=== PATIENT | female | born 1940 | race Caucasian/White ===

== ENCOUNTER 2024-11-27 14:27 | Inpatient (IN) | payer OTHER, SELFPAY ==
[2024-11-27 12:38] VITALS: BP 142/70; BMI 28.3
[2024-11-27 12:59] LABS: Urine Albumin 2+ (Neg - Trace); Urine Bilirubin Negative (Negative); Urine Character Slightly Cloudy (Clear); Urine Color Yellow; Urine Glucose Negative (Negative); Urine Ketone Negative (Negative); Urine Leukocyte 3+ (Negative); Urine Nitrite Positive (Negative); Urine Occult Blood 2+ (Negative); Urine Specific Gravity 1.015 (<1.030); Urine Urobilinogen Negative (Neg - 1+)
[2024-11-27 13:00] VITALS: BP 126/61
[2024-11-27 13:00] LABS: % Basophils 0.4 % (0-2); % Immature Granulocytes 0.5 % (0-0.5); % Lymphocytes 8.2 % (20.5-51.1); % Neutrophils 82.9 % (42.2-75.2); Absolute Immature Granulocytes 0.1 10^3/uL (0-0.05); Absolute Lymphocytes 0.8 10^3/uL (1.2-3.4); Absolute Monocytes 0.8 10^3/uL (0.1-0.6); Absolute Neutrophils 7.8 10^3/uL (1.4-6.5); Hematocrit 39.9 % (37.0-47.0); Hemoglobin 13.5 g/dL (12.0-16.0); Mean Corp Hgb Conc. 33.8 g/dL (33.0-37.0); Mean Corpuscular Hgb 30.2 pg (27.0-31.0); Mean Corpuscular Volume 89.3 fL (81.0-99.0); Nucleated Red Blood Cells % 0 %; Platelet Count 155 10^3/uL (130-400); Red Blood Cell Count 4.47 10^6/uL (4.20-5.40); Red Cell Dist. Width 12.4 % (11.5-14.5); White Blood Cell Count 9.4 10^3/uL (4.8-10.8)
[2024-11-27 13:08] LABS: ALT (SGPT) 14 U/L (0-35); AST (SGOT) 18 U/L (14-36); Albumin 4.6 g/dl (3.5-5.0); Alkaline Phosphatase 63 U/L (38-126); Blood Urea Nitrogen 15 mg/dl (7-17); Calcium 9.6 mg/dl (8.4-10.2); Carbon Dioxide 29 mmol/L (22-30); Chloride 95 mmol/L (98-107); Estimated Creatinine Clearance 46 ml/min; Glucose 117 mg/dl (70-99); Potassium 4.5 mmol/L (3.5-5.1); Sodium 135 mmol/L (135-145); Total Bilirubin 0.7 mg/dl (0.2-1.3); Total Protein 7.2 g/dl (6.3-8.2); eGFR > 60.00
[2024-11-27 13:21] LABS: Urine Urothelial Cell 0-2 /LPF (FEW)
[2024-11-27 13:22] LABS: Urine Bacteria Many (Negative); Urine White Cell 30-40 /HPF (0-5)
--- NOTE | 2024-11-27 13:50 | ED.GENMED ---
History of Present Illness
General
Chief Complaint: Change in Mental Status
Time Seen by Provider: 11/27/24 12:40
History of Present Illness
History of Present Illness:
84-year-old female with history of underlying dementia and hypertension presenting with change in mental status. Patient arrives from home with daughter who notes that yesterday patient did not have a good night of sleep. Per her daughter, was
called by her father and deicer tester today that she was more out of it. When patient arrived, patient seemed very sleepy, out of it, not like herself. Patient does have 24-hour nursing care. No report of any recent fever or new cough. No report of
any fall or trauma. Daughter does note something similar happened a few years ago, was found to have a urine infection. Patient herself is a very limited historian, not able to answer any direct questions. No additional history obtained at this
time
Phy Exam
Physical Exam
Physical Exam:
General: Well-appearing, no clinical signs of dehydration, nontoxic and in no acute distress
HEENT: protecting airway
Neck: appears supple
CV: Normal heart rate, regular rhythm
Resp: No accessory muscle use, no increased work of breathing, lungs clear to auscultation bilaterally
Abd: Soft and non-distended, no tenderness to palpation
Extremities: No deformities, no swelling, no erythema
Neuro: alert, disoriented to place and time
: deferred
Rectal: deferred
Psych: Normal affect
Skin: Intact
Course
Orders/Labs/Results
Orders:
Orders
11/27/24 12:43
EKG [Electrocardiogram (*1)] Urgent
Reason for Study: Other
Other Reason for Exam: change in mental status
EKG- Treatment ONCE
11/27/24 12:44
Complete Blood Count/With Diff Urgent
Comprehensive Metabolic Panel Urgent
Urinalysis Reflex To Culture Urgent
Date Specimen was Collected: 11/27/24
Time Specimen was Collected: 12:43
Urine Microscopic Reflex Cult Urgent
Urine Culture Urgent
LUI Source: U
Specimen Description:
Date Specimen was Collected: 11/27/24
Time Specimen was Collected: 12:43
11/27/24 13:29
0.9% Sodium Chloride 1000 ml [Nss] 1,000 ml IV BOLUS
Abnormal Lab Results
11/27/24
12:44
Abs Immat Gran (auto) 0.1 H 10^3/uL
(0-0.05)
Absolute Neuts (auto) 7.8 H 10^3/uL
(1.4-6.5)
Absolute Lymphs (auto) 0.8 L 10^3/uL
(1.2-3.4)
Absolute Monos (auto) 0.8 H 10^3/uL
(0.1-0.6)
Neutrophils % 82.9 H %
(42.2-75.2)
Lymphocytes % 8.2 L %
(20.5-51.1)
Chloride 95 L mmol/L
(98-107)
Glucose 117 H mg/dl
(70-99)
Ur Occult Blood Reflex 2+ A
(Negative)
Urine Nitrite (Reflex) Positive A
(Negative)
Leukocyte Esterase Rfl 3+ A
(Negative)
Urine RBC 11-15 A /HPF
(0-2)
Urine WBC (Reflex) 30-40 A /HPF
(0-5)
Urine Bacteria (Reflex) Many A
(Negative)
Urine Albumin (Reflex) 2+ A
(Neg - Trace)
11/27/24 12:44
11/27/24 12:44
Vital Signs
Initial and Last Documented VS:
Initial Vital Signs
Temp Pulse Resp BP Pulse Ox
98.4 F 93 16 142/70 95
11/27/24 12:38 04/22/25 12:38 11/27/24 12:38 11/27/24 12:38 11/27/24 12:38
Last Documented Vital Signs
Temp Pulse Resp BP Pulse Ox
98.4 F 85 19 126/61 95
11/27/24 12:38 11/27/24 13:00 11/27/24 13:00 11/27/24 13:00 11/27/24 12:43
MDM/Problems Addressed
MDM/Problems Addressed:
84-year-old female with history of hypertension and dementia presenting to the emergency department for change in mental status.
On arrival patient is awake and alert, however not oriented which appears to be her baseline. Daughter is at bedside, notes that she is more sleepy and just is not acting herself. She however is hemodynamically stable, nontoxic. Moving all
extremities equally with lower suspicion for central neurologic process. Patient has had urinary tract infections with similar presentation in the past, working diagnosis at this time. Will plan for laboratory analysis, EKG, urinalysis.
13:50 - Labs are unremarkable. EKG without acute ischemic abnormality. Urine is positive for infection, consistent with likely etiology to patient's change in mental status. Given reported somnolence and increased sleepiness, will plan for
admission for IV antibiotics and continued monitoring.
*EKG
Interpreted by ED Provider?: Yes
EKG Intrepretation Date: 11/27/24
EKG Intrepretation Time: 13:54
Interpretation: normal
Comparison EKG: no comparison EKG present
Heart Rate: 86
Rate: normal
Rhythm: sinus
[employer]: normal axis
Interval: normal interval
QRS Pattern: normal QRS
Ischemia: no ischemia
*Critical Care Note
Total Time (30-74mins, 75-104mins- exclusive of procedures): Not Applicable
ED Attending Note
-
Portions of this chart may have been created with voice recognition software.� Occasional wrong word or��sound alike� substitutions may have occurred due to the inherent limitations of voice recognition software.
Discharge Plan
Interventions
Interventions:
*Risk Screen - Suicide Last Done: 11/27/24 12:38
*General Assessment Last Done: 11/27/24 12:38
*Neglect/Abuse Screening Last Done: 11/27/24 12:38
*ED- Fall Risk Assessment Last Done: 11/27/24 12:38
*ED COVID-19 Vaccine History Last Done: 11/27/24 12:38
ED- Pulmonary Assessment Last Done: 11/27/24 13:04
ED- Neurological Assessment Last Done: 11/27/24 13:04
ED- Cardiac Assessment Last Done: 11/27/24 13:04
Discharge Date and Time
Print Language: BELARUSIAN
[2024-11-27] MEDS: MAXIPIME 2000 MG IV (14:02)
[2024-11-27] MEDS: NSS 1000 IV (14:06)
--- NOTE | 2024-11-27 14:09 | HPS.HSE ---
Family Physician
-
Family Physician:
Chief Complaint
-
confusion
History of Present Illness
84-year-old female past medical history of dementia, hypertension presenting with change in mental status. She has been lethargic and a little bit confused and weak. She arrives from home with daughter who notes that yesterday patient was not
having a good night of sleep. As per daughter similar thing happened a few years ago and she was found to have UTI. Patient is not a good historian. Unable to say if she was having urinary symptoms. She did have some sweats this morning. No
vomiting or diarrhea.
She does not smoke or drink alcohol.
Medical History
Past Medical History
Past Medical History: Reports Other (dementia, hypertension)
Past Surgical History: Reports None
Social History
Tobacco: Non-smoker
Alcohol: None
Drug: None
Family History
Family History: Not pertinent
Allergies / Home Medications
Allergies reflects when Allergies were last updated in [employer].
Home Medications with original date entered in [employer]
Allergy/Medication List:
Allergies
Allergy/AdvReac Type Severity Reaction Status Date / Time
Penicillins Allergy Swelling Verified 11/27/24 12:42
Home Medications
acetaminophen 650 mg tablet,extended release (Tylenol Arthritis Pain) 1,300 mg PO HS 11/27/24
donepezil 23 mg tablet 23 mg PO QPM 11/27/24
escitalopram oxalate 5 mg tablet (Lexapro) 15 mg PO QPM 11/27/24
losartan 100 mg-hydrochlorothiazide 12.5 mg tablet 1 tab PO QPM 11/27/24
melatonin 10 mg tablet 10 mg PO HS 11/27/24
memantine 28 mg capsule sprinkle,extended release 24hr 28 mg PO QPM 11/27/24
Review of Systems
-
History Source: Patient
A 12 point ROS was completed and negative except as noted: Yes
Constitutional: Reports No Symptoms
EENT: Reports No Symptoms
Respiratory: Reports No Symptoms
Cardiac: Reports No Symptoms
Abdomen/GI: Reports No Symptoms
: Reports No Symptoms
Musculoskeletal: Reports No Symptoms
Skin: Reports No Symptoms
Neurological: Reports No Symptoms
Endocrine: Reports No Symptoms
Hematologic/Lymphatic: Reports No Symptoms
Psych: Reports No Symptoms
Physical Exam
Vital Signs
Vital Signs
Temp Pulse Resp BP Pulse Ox
98.4 F 85 19 126/61 95
11/27/24 12:38 11/27/24 13:00 11/27/24 13:00 11/27/24 13:00 11/27/24 12:43
Physical Exam
General: Well Developed, Well Nourished and No Apparent Distress
HEENT: NormoCephalic, Moist mucous membranes and Atraumatic
Respiratory: Clear
Cardiac: S1/S2 and Regular Rhythm; No Murmur or Rub
GI: Soft, Non Tender, Non Distended and Normal Bowel Sounds; No Organomegaly
Rectal: Deferred by Provider
Musculoskeletal: No Clubbing, No Cyanosis and No Edema
Skin: No Rash
Neuro: Nonfocal/grossly intact
Laboratory Results
-
11/27/24 12:44
11/27/24 12:44
Laboratory Results
Total Bilirubin 0.7 mg/dl (0.2-1.3) 11/27/24 12:44
AST 18 U/L (14-36) 11/27/24 12:44
ALT 14 U/L (0-35) 11/27/24 12:44
Alkaline Phosphatase 63 U/L (38-126) 11/27/24 12:44
Data Reviewed
-
Lab Data: Labs Reviewed by me
Old Records: Reviewed
Impression/Plan
-
IMPRESSION:
PLAN:
# Acute metabolic encephalopathy secondary to UTI
-IV fluids were given
- Urinalysis shows 30-40 WBC, +3 leukocyte esterase, positive nitrates,
- Urine culture
- Ceftriaxone
Dementia
- Continue donepezil, memantine, Lexapro
Essential hypertension
- Continue losartan, hydrochlorothiazide
DNR/DNI
DVT prophylaxis�heparin
Regular diet
[2024-11-27 15:43] VITALS: BP 127/60
--- NOTE | 2024-11-27 16:47 | PTCARENOTE ---
Pt arrived from ED at 1600, was a pullover from stretcher to bed. Pt AAOx2 with daughter at bedside. Nursing assessment complete and pt resting comfortably at bedside. Will continue with plan of care.
[2024-11-27] MEDS: LEXAPRO 15 MG PO (17:19)
[2024-11-27] MEDS: ARICEPT 10 MG PO (17:19)
[2024-11-27] MEDS: NAMENDA 10 MG PO (20:35)
[2024-11-27] MEDS: ROCEPHIN 1000 MG IV (20:35)
[2024-11-27] MEDS: STERILE WATER FOR INJECTION 10 ML IV (20:36)
[2024-11-27] MEDS: HEPARIN 5000 UNITS SC (20:37)
[2024-11-27] MEDS: MELATONIN 10 MG PO (20:42)
[2024-11-27 23:30] VITALS: BP 134/70
[2024-11-28 06:48] LABS: % Basophils 0.5 % (0-2); % Eosinophils 0.1 % (0-6); % Immature Granulocytes 0.5 % (0-0.5); % Lymphocytes 17.5 % (20.5-51.1); % Monocytes 8.8 % (1.7-9.3); % Neutrophils 72.6 % (42.2-75.2); Absolute Lymphocytes 1.5 10^3/uL (1.2-3.4); Absolute Monocytes 0.8 10^3/uL (0.1-0.6); Absolute Neutrophils 6.3 10^3/uL (1.4-6.5); Hemoglobin 13.5 g/dL (12.0-16.0); Mean Corp Hgb Conc. 34.6 g/dL (33.0-37.0); Mean Corpuscular Hgb 30.8 pg (27.0-31.0); Mean Platelet Volume 8.9 fL (7.4-10.4); Nucleated Red Blood Cells % 0 %; Platelet Count 159 10^3/uL (130-400); Red Blood Cell Count 4.38 10^6/uL (4.20-5.40); Red Cell Dist. Width 12.4 % (11.5-14.5); White Blood Cell Count 8.6 10^3/uL (4.8-10.8)
[2024-11-28 07:18] VITALS: BP 113/60
[2024-11-28] MEDS: HEPARIN 5000 UNITS SC ×2 (08:12→20:26)
[2024-11-28 08:28] LABS: ALT (SGPT) 15 U/L (0-35); AST (SGOT) 23 U/L (14-36); Albumin 4.2 g/dl (3.5-5.0); Alkaline Phosphatase 57 U/L (38-126); Blood Urea Nitrogen 15 mg/dl (7-17); Calcium 9.3 mg/dl (8.4-10.2); Carbon Dioxide 26 mmol/L (22-30); Chloride 98 mmol/L (98-107); Estimated Creatinine Clearance 59 ml/min; Glucose 121 mg/dl (70-99); Potassium 4.1 mmol/L (3.5-5.1); Sodium 136 mmol/L (135-145); Total Bilirubin 0.6 mg/dl (0.2-1.3); Total Protein 6.9 g/dl (6.3-8.2); eGFR > 60.00
[2024-11-28] MEDS: NAMENDA PO (09:13)
--- NOTE | 2024-11-28 11:06 | CM ---
Patient seen at bedside with daughter Agus
Dx: UTI
IA completed-via daughter
spoke with hospitalist regarding PT orders
Patient lives with her with edison in a 1 story home, 2 steps to enter
Has paid caregivers 28/02 through [employer] [phone]
PLOF: independent, without assistive device
DME: Walker, wheelchair, rollator, shower grab bars, toilet rails, walk in shower
Denies home health/rehab
Daughter would like her to return to home with 24 & VN
[facility] PT eval
PCP: Wai Gonzalez
[facility]
PLAN: Await PT eval, daughter would like her to return home with 24/ & VN
--- NOTE | 2024-11-28 14:37 | W.PN.HOSP.TC ---
Addendum entered and electronically signed by Jett Stokes MD 11/29/24 14:43:
Additional physical exam: NO CVA tenderness on either the left or the right side
Original Note:
Today's Communication/Plan
-
Continue antibiotics
Physical Therapy
Assessment / Plan
Assessment / Plan
Physical Exam
General: Well Developed, Well Nourished and No Apparent Distress
HEENT: NormoCephalic, Moist mucous membranes and Atraumatic
Respiratory: Clear
Cardiac: S1/S2 and Regular Rhythm; No Murmur or Rub
GI: Soft, Non Tender, Non Distended and Normal Bowel Sounds; No Organomegaly
Rectal: Deferred by Provider
Musculoskeletal: No Clubbing, No Cyanosis and No Edema
Skin: No Rash
Neuro: Nonfocal/grossly intact
Assessment/Plan
84-year-old female past medical history of dementia, hypertension presenting with change in mental status. She has been lethargic and a little bit confused and weak. She arrives from home with daughter who notes that yesterday patient was not
having a good night of sleep. As per daughter similar thing happened a few years ago and she was found to have UTI. Patient is not a good historian. Unable to say if she was having urinary symptoms. She did have some sweats this morning. No
vomiting or diarrhea. She does not smoke or drink alcohol.
# Acute metabolic encephalopathy secondary to UTI
- Per patient's daughter, patient received Cipro for UTI on December 25, 2023 and Nitrofurantoin on September 11, 2024 for prior UTIs
- IV fluids were given
- Urinalysis shows 30-40 WBC, +3 leukocyte esterase, positive nitrates
- Urine culture growing >100k gram negative bacilli -- follow final results and sensivities
- Continue Ceftriaxone
Dementia
- Continue donepezil, memantine, Lexapro
Essential hypertension
- Continue losartan, hydrochlorothiazide --HOLD FOR SBP<110 mmHg
DNR/DNI
DVT prophylaxis�Heparin subq until tonight, followed by Lovenox starting tomorrow 11/29/24
Regular diet
Today, I spoke extensively with patient's daughter who was present inside the patient's room. All questions and concerns were answered to satisfaction.
Anticipated Discharge: 24 - 48 hours
Subjective/Interval History
-
Date of Service: November 28, 2024
Patient was seen and examined. No new symptoms or complaints, per patient's daughter, she is doing at least a little better.
Objective Data
-
Labs:
Laboratory Results
11/28/24
06:29
WBC 8.6
Hgb 13.5
Hct 39.0
Plt Count 159
Sodium 136
Potassium 4.1
Chloride 98
Carbon Dioxide 26
BUN 15
Creatinine 0.7
Glucose 121 H
Calcium 9.3
Total Bilirubin 0.6
AST 23
ALT 15
Alkaline Phosphatase 57
Vital Signs:
Vital Signs
Temp Pulse Resp BP Pulse Ox
98.2 F 83 18 113/60 97
11/28/24 07:18 11/28/24 07:18 11/28/24 07:18 11/28/24 07:18 11/28/24 07:18
I&O
11/27/24 11/28/24 11/29/24
06:59 06:59 06:59
Intake Total 480 / 480
Balance 480 / 480
[2024-11-28 15:15] VITALS: BP 97/53
[2024-11-28] MEDS: LEXAPRO 15 MG PO (17:17)
[2024-11-28] MEDS: ORETIC 12.5 MG PO (17:18)
[2024-11-28] MEDS: COZAAR 100 MG PO (17:18)
[2024-11-28] MEDS: ARICEPT 10 MG PO (17:18)
[2024-11-28] MEDS: NAMENDA 10 MG PO (20:25)
[2024-11-28] MEDS: STERILE WATER FOR INJECTION 10 ML IV (20:26)
[2024-11-28] MEDS: ROCEPHIN 1000 MG IV (20:26)
[2024-11-28] MEDS: MELATONIN 10 MG PO (21:24)
[2024-11-28 22:59] VITALS: BP 143/63
--- NOTE | 2024-11-29 05:26 | DOWNTIME ---
There was a [employer] Downtime on 11/29/2024 from 0200 to 11/30/2023 at 0318 . Downtime documentation of patient's care, including medication administrations, has been reconciled in the electronic record per guidelines. Refer to the
patient's paper chart under the miscellaneous tab to see printed paper medication records and downtime forms.
[2024-11-29 07:27] VITALS: BP 138/65
[2024-11-29 07:43] LABS: % Basophils 0.7 % (0-2); % Eosinophils 1.9 % (0-6); % Immature Granulocytes 0.5 % (0-0.5); % Monocytes 11.5 % (1.7-9.3); % Neutrophils 45.4 % (42.2-75.2); Absolute Eosinophils 0.1 10^3/uL (0-0.7); Absolute Lymphocytes 2.3 10^3/uL (1.2-3.4); Absolute Monocytes 0.7 10^3/uL (0.1-0.6); Absolute Neutrophils 2.6 10^3/uL (1.4-6.5); Hematocrit 36.5 % (37.0-47.0); Hemoglobin 12.5 g/dL (12.0-16.0); Mean Corp Hgb Conc. 34.2 g/dL (33.0-37.0); Mean Corpuscular Hgb 30.4 pg (27.0-31.0); Mean Corpuscular Volume 88.8 fL (81.0-99.0); Mean Platelet Volume 9.2 fL (7.4-10.4); Nucleated Red Blood Cells % 0 %; Platelet Count 153 10^3/uL (130-400); Red Blood Cell Count 4.11 10^6/uL (4.20-5.40); Red Cell Dist. Width 12.5 % (11.5-14.5); White Blood Cell Count 5.7 10^3/uL (4.8-10.8)
[2024-11-29 08:03] LABS: Blood Urea Nitrogen 15 mg/dl (7-17); Calcium 9.1 mg/dl (8.4-10.2); Carbon Dioxide 28 mmol/L (22-30); Chloride 97 mmol/L (98-107); Estimated Creatinine Clearance 69 ml/min; Glucose 108 mg/dl (70-99); Potassium 3.9 mmol/L (3.5-5.1); Sodium 136 mmol/L (135-145); eGFR > 60.00
[2024-11-29] MEDS: NAMENDA 10 MG PO (08:03)
[2024-11-29] MEDS: OMNICEF 300 MG PO ×2 (11:12→17:49)
--- NOTE | 2024-11-29 12:58 | CM ---
Addendum entered by Charlotte Linda 11/29/24 15:02:
PT/OT rec hh
CM consult completed for VN
options reviewed with daughter Agus - prefers [facility]
notified [facility] liaison referral entered in [facility]
IMM explained & signed. In chart
PLAN: home with [facility] & 28/02 private caregivers
daughter to transport
Original Note:
Met with patient and her daughter Agus
Await PT/OT evals
[facility] 28/02 [phone]
PLAN: Await PT/ot evals, daughter would like her to return home with 28/02 & VN
--- NOTE | 2024-11-29 14:41 | W.PN.HOSP.TC ---
Today's Communication/Plan
-
Patient doing well, has improved, I spoke with patient's daughter inside patient's room
Change to oral antibiotics
Await PT eval
Assessment / Plan
Assessment / Plan
Physical Exam
General: Well Developed, Well Nourished and No Apparent Distress
HEENT: NormoCephalic, Moist mucous membranes and Atraumatic
Respiratory: Clear
Cardiac: S1/S2 and Regular Rhythm; No Murmur or Rub
GI: Soft, Non Tender, Non Distended and Normal Bowel Sounds
: NO CVA tenderness on either the left or the right side
Musculoskeletal: No Cyanosis and No Edema
Skin: Warm. Dry.
Neuro: Nonfocal/grossly intact
Assessment/Plan
84-year-old female past medical history of dementia, hypertension presenting with change in mental status. She has been lethargic and a little bit confused and weak. She arrives from home with daughter who notes that yesterday patient was not
having a good night of sleep. As per daughter similar thing happened a few years ago and she was found to have UTI. Patient is not a good historian. Unable to say if she was having urinary symptoms. She did have some sweats this morning. No
vomiting or diarrhea. She does not smoke or drink alcohol.
# Acute metabolic encephalopathy - IMPROVING - secondary to UTI
# Klebsiella pneumoniae Urinary Tract Infection
- Per patient's daughter, patient received Cipro for UTI on December 25, 2023 and Nitrofurantoin on September 11, 2024 for prior UTIs
- IV fluids were given
- Urinalysis shows 30-40 WBC, +3 leukocyte esterase, positive nitrates
- Urine culture noted with Klebsiella pneumoniae
- Ceftriaxone changed to Cefdinir 300 mg BID (Day 1 of antibiotics is 11/27/24) --> will complete a 7 day course
Dementia
- Continue donepezil, memantine, Lexapro
Essential hypertension
- Continue losartan, hydrochlorothiazide --HOLD FOR SBP<110 mmHg
DNR/DNI
DVT prophylaxis�Heparin subq until tonight, followed by Lovenox starting tomorrow 11/29/24
Regular diet
Today, I spoke again extensively with patient's daughter who was present inside the patient's room. All questions and concerns were answered to satisfaction.
Anticipated Discharge: Within 24 hours
Subjective/Interval History
-
Date of Service: November 29, 2024
Patient was seen and examined. She was doing better today, as I confirmed with patient's daughter who was present in her room. No new symptoms or complaints.
Objective Data
-
Labs:
Laboratory Results
11/29/24
07:11
WBC 5.7
Hgb 12.5
Hct 36.5 L
Plt Count 153
Sodium 136
Potassium 3.9
Chloride 97 L
Carbon Dioxide 28
BUN 15
Creatinine 0.6
Glucose 108 H
Calcium 9.1
Vital Signs:
Vital Signs
Temp Pulse Resp BP Pulse Ox
97.7 F 67 16 138/65 95
11/29/24 07:27 11/29/24 07:27 11/29/24 07:27 11/29/24 07:27 11/29/24 07:27
I&O
11/28/24 11/29/24 11/30/24
06:59 06:59 06:59
Intake Total 480 / 480 720 / 720
Balance 480 / 480 720 / 720
[2024-11-29 15:15] VITALS: BP 101/43
[2024-11-29 15:26] VITALS: BP 102/57; PULSE 74; O2SAT 95
[2024-11-29 15:34] VITALS: BP 102/57; PULSE 74; O2SAT 95
--- NOTE | 2024-11-29 15:46 | VNURNOTE ---
Home Health Liaison met with patient and daughter/ANAMARIA Goldsmith at bedside to discuss [facility] nurse/therapy, visits, schedule and homebound status. Patient was dozing. Daughter is agreeable and understands that visits at home will be 2-3 x per week to
assess and teach medical management.
[facility]2 days after discharge from .
[facility] referral completed in [facility].
== END 2024-11-29 18:04 | disposition home health service (06) | DRG 689 ==
LOC: 3 WEST ACU 14:27
PROVIDERS: ADMITTING PHYSICIAN Hospitalist; ATTENDING PHYSICIAN Hospitalist; EMERGENCY PHYSICIAN Student in an Organized Health Care Education/Training Program; FAMILY PHYSICIAN Internal Medicine
DX: N39.0 Urinary tract infection, site not specified (principal); G93.41 Metabolic encephalopathy; B96.1 Klebsiella pneumoniae [K. pneumoniae] as the cause of diseases classified elsewhere; F03.90 Unspecified dementia, unspecified severity, without behavioral disturbance, psychotic disturbance, mood disturbance, and anxiety; I10 Essential (primary) hypertension; Z66 Do not resuscitate; Z88.0 Allergy status to penicillin
CPT/HCPCS: 80048; 80053; 81003; 81015; 85025; 87077; 87086; 87186; 93005; 96361; 96374; 97163; 97166; 99285